=== PATIENT | female | born 1975 | race Caucasian/White ===

== ENCOUNTER → 2016-03-18 | Outpatient (REF) | payer OTHER ==
[2016-03-18 13:09] LABS: CALCIUM OXALATE CRYSTALS LARGE
== END | disposition home or self-care (01) ==
LOC: M LAB REF 12:27
PROVIDERS: ATTEND Physician Assistant
DX: N39.0 Urinary tract infection, site not specified (principal); R30.0 Dysuria

== ENCOUNTER → 2016-12-08 | Outpatient (REF) | payer OTHER | LOC: M SFHCPLAZ 10:48 | PROVIDERS: ATTEND Nurse Practitioner Family | DX: Z91.89 Other specified personal risk factors, not elsewhere classified (principal) ==

== ENCOUNTER → 2017-10-15 | Outpatient (CLI) | payer OTHER ==
[2017-10-15 10:49] LABS: BASO # 0.1 10^3/uL (0.0-0.2); BASO % 0.7 % (0.0-1.0); EOS # 0.1 10^3/uL (0.0-0.50); EOS % 0.7 % (0.0-3.0); HEMATOCRIT 35.1 % (36.0-47.0); HEMOGLOBIN 10.8 g/dl (12.0-15.5); IMMATURE GRANULOCYTE % 0.4 % (0-3.0); LYMPH # 2.1 10^3/uL (1.5-4.5); LYMPH % 24.6 % (24.0-44.0); MEAN CORPUSCULAR HEMOGLOBIN 24.7 pg (27.0-33.0); MEAN CORPUSCULAR HGB CONC 30.8 g/dl (32.0-36.5); MEAN CORPUSCULAR VOLUME 80.3 fl (80.0-96.0); MONO # 0.5 10^3/uL (0.0-0.8); MONO % 5.4 % (0.0-5.0); NEUTROPHILS # 5.8 10^3/uL (1.8-7.7); NEUTROPHILS % 68.2 % (36.0-66.0); PLATELET COUNT, AUTOMATED 341 10^3/uL (150-450); RED BLOOD COUNT 4.37 10^6/uL (4.00-5.40); RED CELL DISTRIBUTION WIDTH 24.1 % (11.5-14.5); WHITE BLOOD COUNT 8.5 10^3/uL (4.0-10.0)
[2017-10-15 11:17] LABS: IRON (FE) 38 UG/DL (50-170); PERCENT SATURATION 8.6 % (13.2-45.0); TOTAL IRON BINDING CAPACITY 442 UG/DL (250-450)
[2017-10-15 11:46] LABS: VITAMIN B12 LEVEL 259 PG/ML
[2017-10-15 11:47] LABS: FOLATE 7.9 NG/ML
[2017-10-16 14:57] LABS: TISSUE TRANSGLUTAMINASE IgA <2 U/mL (0-3)
== END ==
LOC: M LAB 10:07
DX: D50.9 Iron deficiency anemia, unspecified (principal)
CPT/HCPCS: 82746

== ENCOUNTER 2018-01-26 08:06 | Emergency (ER) | payer OTHER ==
[2018-01-26 09:17] LABS: BASO # 0.1 10^3/uL (0.0-0.2); BASO % 1.1 % (0.0-1.0); EOS % 0.5 % (0.0-3.0); HEMATOCRIT 32.4 % (36.0-47.0); HEMOGLOBIN 9.6 g/dl (12.0-15.5); IMMATURE GRANULOCYTE % 0.2 % (0-3.0); LYMPH # 1.8 10^3/uL (1.5-4.5); LYMPH % 22.1 % (24.0-44.0); MEAN CORPUSCULAR HGB CONC 29.6 g/dl (32.0-36.5); MEAN CORPUSCULAR VOLUME 77.5 fl (80.0-96.0); MONO # 0.5 10^3/uL (0.0-0.8); MONO % 6.3 % (0.0-5.0); NEUTROPHILS # 5.6 10^3/uL (1.8-7.7); NEUTROPHILS % 69.8 % (36.0-66.0); PLATELET COUNT, AUTOMATED 360 10^3/uL (150-450); RED BLOOD COUNT 4.18 10^6/uL (4.00-5.40); RED CELL DISTRIBUTION WIDTH 15.9 % (11.5-14.5); WHITE BLOOD COUNT 8.1 10^3/uL (4.0-10.0)
[2018-01-26 09:53] LABS: ALBUMIN 3.7 GM/DL (3.2-5.2); ALBUMIN/GLOBULIN RATIO 1.06 (1.00-1.93); ALKALINE PHOSPHATASE 77 U/L (45-117); ALT/SGPT 17 U/L (12-78); ANION GAP 5 MEQ/L (8-16); AST/SGOT 23 U/L (7-37); BILIRUBIN,DIRECT < 0.1 MG/DL (0.0-0.2); BILIRUBIN,TOTAL 0.5 MG/DL (0.2-1.0); BLOOD UREA NITROGEN 6 MG/DL (7-18); CALCIUM LEVEL 8.6 MG/DL (8.5-10.1); CARBON DIOXIDE LEVEL 28 MEQ/L (21-32); CHLORIDE LEVEL 107 MEQ/L (98-107); GLOMERULAR FILTRATION RATE > 60.0 (>58); GLUCOSE, FASTING 84 MG/DL (70-100); POTASSIUM SERUM 4.6 MEQ/L (3.5-5.1); SODIUM LEVEL 140 MEQ/L (136-145); TOTAL PROTEIN 7.2 GM/DL (6.4-8.2)
[2018-01-26 09:58] LABS: CONTROL LINE HCG INT CTR LINE PRESENT; HCG, SERUM QUALITATIVE NEGATIVE (NEGATIVE)
[2018-01-26] MEDS: NS 1,000 ML IV (10:25)
[2018-01-26 10:35] LABS: FERRITIN 4 NG/ML (8-252); FOLATE 10.6 NG/ML (>5.4); IRON (FE) 22 UG/DL (50-170); PERCENT SATURATION 4.3 % (13.2-45.0); TOTAL IRON BINDING CAPACITY 510 UG/DL (250-450); VITAMIN B12 LEVEL 376 PG/ML (247-911)
== END 2018-01-26 11:36 | disposition home or self-care (01) ==
LOC: M ED 08:06
DX: K64.4 Residual hemorrhoidal skin tags (principal); N93.8 Other specified abnormal uterine and vaginal bleeding; D50.9 Iron deficiency anemia, unspecified; K92.2 Gastrointestinal hemorrhage, unspecified; N83.201 Unspecified ovarian cyst, right side; N88.8 Other specified noninflammatory disorders of cervix uteri; Z90.5 Acquired absence of kidney; K27.9 Peptic ulcer, site unspecified, unspecified as acute or chronic, without hemorrhage or perforation; Z98.84 Bariatric surgery status; Z72.0 Tobacco use; Z79.899 Other long term (current) drug therapy; Z91.89 Other specified personal risk factors, not elsewhere classified
CPT/HCPCS: 76856

== ENCOUNTER 2018-03-28 13:05 | Observation (INO) | payer OTHER ==
[~2018-03-28] VITALS: Ht 165.1 cm; Wt 77.0 kg
[~2018-03-28 13:05] MED LIST: IRON27TA2 PO; LEXA1TAB PO; OMEP20TA PO; OMEP40CA2 PO; PROT1TAB2 PO; SUCR1SS PO; SUCR1TA PO
--- NOTE | 2018-03-28 13:52 | REP ---
Clinical: Trauma. Technique: AP, lateral, bilateral oblique views of the right tibia / fibula. Findings: Comminuted fractures involving the proximal tibial and fibular metaphyses. Evidence of intra-articular extension of the tibial fracture cannot be excluded. Impression: Comminuted fractures of the proximal tibial and fibular metaphyses. Electronically Signed by Kishan Delaney MD 03/28/2018 01:44 P
--- NOTE | 2018-03-28 13:53 | REP ---
Clinical: Trauma . Technique: AP, lateral, bilateral oblique views. Findings: No acute fracture or dislocation. Generalized age-related changes noted along with small calcaneal heal spur. Impression: No acute fracture or dislocation. Electronically Signed by Kishan Delaney MD 03/28/2018 01:45 P
--- NOTE | 2018-03-28 13:55 | REP ---
Clinical: Trauma. Technique: AP, lateral, bilateral oblique views of the right knee. Findings: Comminuted fractures of the proximal fibular and tibial metaphyses noted with intra-articular extension of the tibial fracture involving the intercondylar plateau. Impression: Proximal tibial and fibular metaphyseal fractures intra-articular extension of the tibial fracture. Electronically Signed by Kishan Delaney MD 03/28/2018 01:46 P
[2018-03-28] MEDS ORDERED: MORPHINE 4 MG/ML 1ML VIAL/SYRINGE (J2270) IV ONE ×2 (14:15→15:15)
--- NOTE | 2018-03-28 15:09 | REP ---
Clinical: Trauma. Technique: Axial noncontrast images from the femoral condyles through the knee and ankle with coronal and sagittal re-formations. Findings: There is a nondisplaced fracture involving the tibial metaphysis extending superiorly to the articular surface. There is a comminuted fracture involving the proximal fibular metaphysis. Moderate joint effusion and subtle post traumatic changes to the surrounding soft tissues noted without obvious significant intramuscular hematoma, foreign body or obvious laceration. Impression: Fractures of the proximal tibia and fibula. Electronically Signed by Kishan Delaney MD 03/28/2018 03:00 P
[2018-03-28] MEDS ORDERED: ONDANSETRON 4MG/2ML VIAL (J2405) IV ONE (15:15)
[2018-03-28] MEDS ORDERED: ENDO10TA8 PO (15:27)
[2018-03-28] MEDS ORDERED: MORPHINE 2 MG/ML 1ML SYRINGE (J2270) IV ONE (15:45)
[2018-03-28] MEDS: HYDROMORPHONE HCL 0.5 MG/ 0.5 ML SYRINGE (J1170 PER 1) IV PRN ×2 (17:19→20:06)
[2018-03-28 19:29] LABS: HEMATOCRIT 27.3 % (36.0-47.0); HEMOGLOBIN 7.9 g/dl (12.0-15.5); MEAN CORPUSCULAR HEMOGLOBIN 21.2 pg (27.0-33.0); MEAN CORPUSCULAR HGB CONC 28.9 g/dl (32.0-36.5); MEAN CORPUSCULAR VOLUME 73.2 fl (80.0-96.0); PLATELET COUNT, AUTOMATED 321 10^3/uL (150-450); RED BLOOD COUNT 3.73 10^6/uL (4.00-5.40); WHITE BLOOD COUNT 13.4 10^3/uL (4.0-10.0)
[2018-03-28 19:56] LABS: BLOOD UREA NITROGEN 7 MG/DL (7-18); CALCIUM LEVEL 7.9 MG/DL (8.5-10.1); CARBON DIOXIDE LEVEL 27 MEQ/L (21-32); CHLORIDE LEVEL 106 MEQ/L (98-107); CREATININE FOR GFR 0.66 MG/DL (0.55-1.30); GLOMERULAR FILTRATION RATE > 60.0 (>58); GLUCOSE, FASTING 167 MG/DL (70-100); SODIUM LEVEL 140 MEQ/L (136-145)
[2018-03-28 21:45] VITALS: BP 168/82
[2018-03-28] MEDS: MORPHINE 4 MG/ML 1ML VIAL/SYRINGE (J2270) IV PRN (22:30)
[2018-03-29] MEDS: MORPHINE 4 MG/ML 1ML VIAL/SYRINGE (J2270) IV PRN ×2 (02:08→04:38)
[2018-03-29 06:00] VITALS: BP 119/68
[2018-03-29] MEDS ORDERED: PERCOCET 5MG/325MG TAB PO PRN (07:15)
[2018-03-29] MEDS ORDERED: ONDANSETRON 4 MG TAB (S0181) PO PRN (07:15)
[2018-03-29] MEDS ORDERED: KETOROLAC 30 MG/ML VIAL (J1885) IV PRN (07:30)
[2018-03-29 08:10] VITALS: BP 135/76
[2018-03-29] MEDS: PERCOCET 5MG/325MG TAB PO PRN ×4 (08:14→21:45)
--- NOTE | 2018-03-29 08:59 | HPE ---
DATE OF ADMISSION: 03/28/2018 ADMISSION HISTORY AND PHYSICAL: 42-year-old female with past medical history of gastric bypass surgery in 2014 and gastroesophageal reflux disease (GERD) presents to the emergency room after having a fall at home. Apparently, she was tubing with her kids and she fell off and twisted her right foot. When she came to the emergency room (ER), she was found to have a right tibia/fibula fracture. Orthopedics did not think this was a surgical issue, wanted to give the patient a brace and send her home but she was in too much pain. She was given multiple doses of morphine and Dilaudid to no avail so patient will be admitted for pain management and ortho consultation. At this time, her pain is 3/10 and she offers no complaints of chest pain or shortness of breath. No abdominal pain, nausea, vomiting, vertigo or headache. Again, past medical history of gastric bypass surgery in 2014, history of GERD, iron deficiency anemia. She has NO KNOWN DRUG ALLERGIES. FAMILY HISTORY: Noncontributory. SOCIAL HISTORY: Patient smokes a pack day for many years. Denies alcohol or illicit drugs. MEDICATIONS (she takes at home are as follow): - omeprazole 40 mg orally twice daily - sucralfate 1 gram orally four times a day - Endocet one tablet orally four times a day as needed - iron 27 mg one tablet orally daily Review of systems is negative of all 10 major systems except what is mentioned in the history of present illness (HPI). Vital Signs: Blood pressure is 136/80. Heart rate is 82, regular. Respiratory rate is 14. Temperature is 99.8. Oxygen saturation 98% on room air. Head: Atraumatic, normocephalic atraumatic. Neck: Supple. No jugular venous distention (JVD). Lungs are clear to auscultation. S1, S2 audible. No murmurs appreciated. Abdomen: Soft. Positive bowel sounds. Left leg has no pedal edema. Right leg is in a brace. Neurologic Examination: Patient awake, alert and oriented times three. Labs at this point are pending. IMPRESSION: Right tibia/fibula fracture. PLAN: Patient is to be admitted to medical-surgical floor on observation status. We will have orthopedics see the patient in the morning, and I will give her morphine 2 mg IV every 2 as needed for pain management. We will continue her preadmission medications and continue her care in the medical-surgical floor.
[2018-03-29] MEDS: ENOXAPARIN 40 MG/0.4 ML SYRINGE (J1650) SC SCH (09:20)
--- NOTE | 2018-03-29 10:00 | CR ---
DATE OF CONSULTATION: 03/28/2018 CHIEF COMPLAINT: Right tibial plateau fracture. HISTORY OF PRESENT ILLNESS: This is a 42-year-old female who was doing some tubing/sledding in her driveway yesterday at 11:00 a.m. She had a twisting injury to her knee. She felt immediate pain in the knee. She subsequently presented to the emergency department. They called me and she was found to have a tibial plateau fracture. I advised them to put her in a knee brace in extension, non-weightbearing and to follow-up in my clinic the next day. Unfortunately, she could not cope with the pain so she was admitted to the hospital overnight. She was admitted to [address] [place] [address]. She did not have any previous history of injury or problems with the knee. PAST MEDICAL HISTORY: Significant for Anemia. She receives periodic blood transfusions. MEDICATIONS: - omeprazole - Carafate ALLERGIES: No known drug allergies. SURGICAL HISTORY: Gastric bypass in 2014. Cholecystectomy. Two sections. 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 She smokes 20 cigarettes a day. She drinks alcohol occasionally. She does not consume any street drugs. PHYSICAL EXAMINATION: Revealed a well appearing 42-year-old female. She is anxious and tearful. She is alert and oriented times three. Vital signs stable. Examination of her lower extremities revealed closed injury to the right side, nothing on the left side. Moderate amount of swelling to the knee, but nothing tracking down the leg. No obvious ecchymosis. No redness. Normal sensation in both lower extremities, superficial and deep peroneal nerves as well as saphenous, sural and tibial. She is able to wiggle her toes, dorsiflex and plantar flex her feet on both sides. She had good perfusion to both her feet. Her feet were warm. Dorsalis pedis and tibialis posterior pulses were strong on both sides. There was a little bit of pain to palpation of the lateral side of the knee, but nothing down the leg or into the hip. The hip she did state was a little bit sore from not moving her leg. She was in a knee extension immobilizer brace and did put an ice pack onto the knee. CT scan and radiographs were reviewed. This appears to show a nondisplaced type 1 lateral split fracture of the tibial plateau. No obvious fracture to the distal femur. There is a proximal fibula fracture. It is oblique and at the neck. No obvious intra-articular gaps, steps or comminution. ASSESSMENT/PLAN: This is a 42-year-old female with a type 1 Schatzker tibial plateau fracture. Given the articular surface congruity I believe that we can treat this nonoperatively. We will get her a hinged knee brace for now locked in extension as she is having some difficulties with pain, but no obvious compartment syndrome. The compartments were soft on today's exam. We will try to control her pain with oral medications such as Tylenol and opioid medications. We will try two doses of IV Toradol 30 mg every 6 hours to try and settle down her pain. I have advised her the best course of action to try and get up and mobilize. For now we will make her non-weightbearing on that side locked in extension in a hinged knee brace. As it seems like she has a low pain tolerance and I do not expect her to mobilize very rapidly, we will put her on Lovenox 40 mg by mouth once daily for venous thromboembolism (VTE)/deep vein thrombosis (DVT) prophylaxis. If she does end up being discharged home whenever she is comfortable she can see me back in the clinic in about one weeks time where I will start gradual knee range of motion.
--- NOTE | 2018-03-29 18:10 | IPN ---
DATE: 03/29/2018 CHIEF COMPLAINT: Right tibial plateau fracture plus patient concerns and questions. HISTORY OF PRESENT ILLNESS: This is a 42-year-old female who had a fall. She has sustained what appears to be on the CT scan a type 1 tibial plateau fracture. This is undisplaced. No steps or gaps of the joints. I saw her this morning at 6:45 a.m. and I explained all this to her. I explained that we can treat this nonoperatively given the articular congruity and lack of gapping or steps at the joint and lack of comminution as well as simple fracture pattern. I saw her with the nurse practitioner, Evangelina. I explained that we were ordering a hinged knee brace, that she will be non-weightbearing for the next 2 weeks, largely locked in extension, as well as placing her on a blood thinner and trying some intravenous Toradol as well as oral Tylenol and narcotics to control her pain. Later that evening, Evangelina communicated to me that the patient was having some concerns related to lack of explanation and thought that she was going to have an operation. This was communicated to her in the emergency department by either the physician or the physician assistant office manager and not by myself. She is also wondering about a cast for the leg and what exactly her fracture looks like. PHYSICAL EXAMINATION: She is seen today with her in the room. Inspection of the lower extremities reveal a moderate amount of swelling to the right knee, minimal ecchymosis. She is able to wiggle her toes, dorsiflex and plantar flex her foot. She has a strong dorsalis pedis pulse on that side. Compartments are soft. She is still in the knee immobilizer brace, she does not have a hinged knee brace yet. ASSESSMENT AND PLAN: Myself as well as the nurse came into the room and tried to explain what was going on again to the patient. She was more understanding. We explained to her the nature of the fracture. She was apparently described the fracture as being "shattered" at one point, but really it is more of a proximal fibula neck fracture and a Schatzker type 1 tibial plateau fracture. I morgan her a picture of this. I explained in great detail to her that we do need to follow this up at weekly intervals to make sure that there is no further displacement or shifting of the fracture site, in which case it may need surgery to prevent deformity and early knee arthritis. Her and her were more understanding of this. We explained to her what a knee immobilizer is doing exactly and the fact that she is in hospital for pain control and also to be able to mobilize safely non-weightbearing with the crutches. She seemed to accept this explanation and I waited until they had no further questions and then I told them that I would see her tomorrow morning and throughout her hospital course and follow her up with weekly x-rays. They appeared satisfied with this answer. Hopefully this addresses their questions and concerns adequately.
[2018-03-29 22:00] VITALS: BP 125/58
[2018-03-30] MEDS: PERCOCET 5MG/325MG TAB PO PRN ×6 (02:14→23:12)
[2018-03-30 06:00] VITALS: BP 128/65
--- NOTE | 2018-03-30 07:16 | IPN ---
DATE OF SERVICE: 03/30/2018 CHIEF COMPLAINT: Post admit day 2 right tibial plateau fracture. HISTORY OF PRESENT ILLNESS: This 42-year-old female is seen today post admission day 2 right tibial plateau fracture. She was admitted for pain control. Her pain is slowly diminishing now. Still located in the knee, nowhere else. I had spoken to her yesterday, explained her x-rays and the nonoperative management of this problem given the articular surface congruity, no comminution. She is still in the knee brace and extension. Overall she is doing better. PHYSICAL EXAMINATION: Vital signs: Respiratory rate this morning 16. She has no updated vital signs from this morning. I spoke to her this morning. She is alert and oriented times three. She recognizes that she was being a bit unreasonable yesterday with myself and with the man that fitted her for the hinged knee brace. She would like to have that. In terms of her right lower extremity, there is a moderate amount of swelling but no ecchymosis. She can wiggle her toes, dorsiflex and plantarflex her foot. No pain on passive stretch. She has normal pedal pulses. ASSESSMENT AND PLAN: This 42-year-old female, we will call back the individual that fits the braces to get her into a hinged knee brace. We will lock this in extension and keep her non-weightbearing for the first two weeks and then gradually progress her weight bearing to touch down weightbearing from weeks 3-8. We will start gradual range of motion at the 2 week alfredo while she is in bed. She remains on VTE prophylaxis. We will try to get her pain under control and I have advised her to try and wean off the opioid medications to help with her ambulation. I also showed her a picture of her CT scan this morning. She was more understanding of the nature of the injury. We will see how things go with her.
[2018-03-30] MEDS: ENOXAPARIN 40 MG/0.4 ML SYRINGE (J1650) SC SCH (10:21)
[2018-03-30 13:11] LABS: HEMATOCRIT 26.8 % (36.0-47.0); MEAN CORPUSCULAR HEMOGLOBIN 21.4 pg (27.0-33.0); MEAN CORPUSCULAR HGB CONC 29.9 g/dl (32.0-36.5); MEAN CORPUSCULAR VOLUME 71.8 fl (80.0-96.0); PLATELET COUNT, AUTOMATED 329 10^3/uL (150-450); RED BLOOD COUNT 3.73 10^6/uL (4.00-5.40)
[2018-03-30 14:00] VITALS: BP 116/66
--- NOTE | 2018-03-30 15:03 | IPN ---
DATE: 03/30/2018 SUBJECTIVE: The patient tells me that she is feeling better. She still has pain in her leg but otherwise no specific complaints. Denies any fevers, chills, chest pain, or shortness of breath. OBJECTIVE: VITAL SIGNS: Temperature 97.1, pulse 72, respiratory rate 16, blood pressure 128/65, oxygen saturation 97% on room air. GENERAL: She is a middle-aged, female accompanied by her significant other. She does not appear to be in any acute distress. NEUROLOGIC: Cranial nerves II-XII are grossly intact. HEENT: She has moist mucous membranes. No elevation of central venous pressure (CVP). CARDIOVASCULAR: S1, S2, regular. RESPIRATORY: Clear. ABDOMEN: Obese. EXTREMITIES: Her right lower extremity is in a brace. Decreased range of motion secondary to pain. LABORATORY STUDIES: WBC 10.0, hemoglobin 8.0, platelet count 329. Chemistry Panel: Sodium 140, potassium 4.0, chloride 106, bicarbonate 27, BUN 7, creatinine 0.6. No new imaging. ASSESSMENT AND PLAN: This is a 42-year-old female with a tibia/fibula fracture of the right lower extremity, status post trauma in a sledding accident. 1. Tibia/fibula fracture. She is nonoperative as per orthopedic surgery. Their help has been greatly appreciated. The plan is for her to have a specific brace placed for her today and then have her work with physical therapy and work on disposition planning from there. 2. Symptomatic anemia. She has struggled with this for many years and has been transfusion dependent in the past. It is felt as though she has a history of gastric bypass surgery and it may be related to her anastomotic leak versus what is more likely menorrhagia. She is mildly symptomatic and her counts her low while she is here. I will transfuse her two units and order iron studies. 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 3. Deep vein thrombosis (DVT) prophylaxis. Lovenox. DISPOSITION: Pending physical therapy (PT) and brace placement.
[2018-03-30 20:15] LABS: HEMATOCRIT 29.3 % (36.0-47.0); HEMOGLOBIN 8.9 g/dl (12.0-15.5)
[2018-03-30 22:00] VITALS: BP 120/60
[2018-03-31] MEDS: PERCOCET 5MG/325MG TAB PO PRN ×3 (03:56→12:38)
[2018-03-31] MEDS ORDERED: ASPI81CH30 PO (06:55)
[2018-03-31] MEDS ORDERED: PERC5TAB12 PO (06:55)
--- NOTE | 2018-03-31 07:31 | IPN ---
DATE OF SERVICE: 03/31/2018 CHIEF COMPLAINT: Post admit day 3 right tibial plateau fracture treating this non-operatively. HISTORY OF PRESENT ILLNESS: This 42-year-old female has a minimally displaced tibial plateau fracture. Seen today at [address] [place] [address]. She was admitted initially by the hospitalist for problems with pain management. Now she is on oral Percocet. She is not taking any more intravenous pain medications. She is comfortable. She has the hinged knee brace locked in extension. She is ambulating using a walker and she did relay one episode where she got upset with the occupational therapy (OT) service. Otherwise she is definitely slow to mobilize per the nurses. Still using a bed zamorano. She also has been managed by the hospitalist and was transfused apparently yesterday. She has chronically low hemoglobin. When she came in, it was 7.9. PHYSICAL EXAMINATION: Vital signs: Respiratory rate 16 this morning. No vital signs documented this morning but yesterday her temperature was 97.3. Blood pressure 120/60, pulse rate 78. She is alert and oriented times three. She is slightly better groomed today. Easier to converse with. She remembered that she is going to be in the brace for 6-8 weeks. In terms of her lower extremities, there is minimal to moderate amount of swelling around the knee. No ecchymosis. No fracture, blisters. She is able to wiggle her toes and dorsiflex and plantarflex her foot. She has normal sensation throughout the foot and good pedal pulses. The foot is warm and well perfused. LABORATORY EXAM: Revealed hemoglobin on arrival is 7.9 and yesterday it was 8.9. I presume post transfusion. ASSESSMENT AND PLAN: This 42-year-old female, we have encouraged to mobilize and be discharged to home on oral pain medication. Ideally she should go home on one 325 mg aspirin per day for VTA prophylaxis as she is quite slow to mobilize. I would like to see her in the clinic about 1 week post injury or early next week for repeat radiograph and clinical exam to ensure that there is no displacement of the fracture. In terms of her medical issues, these are being actively managed by the hospitalist and apparently due to her changing insurances, she might end up getting infusion, thus she has tried iron in the past. I will leave this to her family doctors and internists. I look forward to seeing her back in the clinic in about a weeks' time.
[2018-03-31] MEDS: ENOXAPARIN 40 MG/0.4 ML SYRINGE (J1650) SC SCH (08:32)
--- NOTE | 2018-03-31 21:43 | DSES ---
DATE OF ADMISSION: 03/28/2018 DATE OF DISCHARGE: 03/31/2018 DISCHARGE DIAGNOSIS: Comminuted fracture of the proximal tibia and fibula metaphysis. SECONDARY DIAGNOSIS: Symptomatic anemia. HOSPITAL COURSE: The patient is a 42-year-old female who was in a sledding accident and suffered a traumatic tibia-fibular fracture. She was admitted to the hospitalist service. She had a consultation by orthopedic surgery, Harley Kothari. She was felt to be nonoperative. She was provided with a special brace. It was recommended that she be discharged home on aspirin as per orthopedic surgery's recommendations, as she was quite slow to mobilize, with 1-week followup in their clinic. During the stay she was found to be somewhat anemic related to menorrhagia versus anastomotic leak related to her bariatric surgery. She has been evaluated numerous times with numerous providers in the outpatient setting regarding this. Iron studies were suggestive of iron deficiency anemia, and she was provided with 2 units of transfusion, which she had a positive response to. She cleared physical therapy while wearing her brace and was medically stable for discharge home at this time with her clinical syndrome improved. This morning, the patient does not have any complaints. OBJECTIVE: VITAL SIGNS: Temperature 97.3, pulse 78, respiratory rate 20, blood pressure (BP) 120/60, oxygen saturation 96% on room air. GENERAL: She is a pleasant, middle-aged female with numerous tattoos, sitting up in bed in no acute distress. HEENT: Cranial nerves II-XII are grossly intact. She has moist mucous membranes. CARDIOVASCULAR: S1, S2, regular. RESPIRATORY: Clear to auscultation bilaterally. EXTREMITIES: No clubbing, cyanosis, or edema. Right lower extremity brace. LABORATORY STUDIES: WBC 10.0, hemoglobin 8.9, platelet count 329. Chemistry panel: Sodium 140, potassium 4.0, chloride 106, bicarbonate 27, BUN 7, creatinine 0.6. ASSESSMENT AND PLAN: This is a 42-year-old female with a traumatic tibia-fibula fracture of the right lower extremity, status post trauma in a sledding accident. 1. Tibia-fibula fracture, nonoperative per orthopedic surgery. Their help has been greatly appreciated. Plan is to have her in a brace and be nonweightbearing. She is to followup in the orthopedic clinic in [address] Kothari. Will be given aspirin for deep vein thrombosis (DVT) prophylaxis. 2. Symptomatic anemia. [place] to be related to menorrhagia versus gastric bypass anastomotic leak. She did have a positive response to 1 unit of packed red blood cells (PRBC). I have recommended that she followup with her harness cleaner and bariatric surgeon in the outpatient setting for further evaluation and workup regarding this. She should likely also be on iron supplementation in the long run. She tells me that she is on this already. DISPOSITION: The patient will be discharged home. She is being discharged to the care of her family. Her clinical syndrome is resolved. She is to followup with Dr. Alvarez in 1 week, primary care physician (PCP) in 1 week. Walk with a walker. Nonweightbearing on the right. 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 Aspirin 81 mg daily for 30 days as per orthopedics, Percocet 5/325 one tablet every 4 hours as needed for pain as per orthopedic surgery, Endocet 10/325 four times daily as needed for pain as per orthopedic surgery, iron 27 mg daily, omeprazole 40 mg twice a day, Carafate 1 gram four times a day. Greater than 30 minutes spent organizing disposition.
== END 2018-03-31 14:05 | disposition home or self-care (01) ==
LOC: M ED 13:05 → M ED INP 19:06 → M MS5PR 21:40
PROVIDERS: ADMIT Internal Medicine; ATTEND Internal Medicine Nephrology
DX: S82.101A Unspecified fracture of upper end of right tibia, initial encounter for closed fracture (principal); Y93.23 Activity, snow (alpine) (downhill) skiing, snowboarding, sledding, tobogganing and snow tubing; Y92.093 Driveway of other non-institutional residence as the place of occurrence of the external cause; Y99.8 Other external cause status; D50.9 Iron deficiency anemia, unspecified; Z98.84 Bariatric surgery status; F17.210 Nicotine dependence, cigarettes, uncomplicated; K21.9 Gastro-esophageal reflux disease without esophagitis; Z79.899 Other long term (current) drug therapy
CPT/HCPCS: 36415; 73564; 73590; 73610; 73700; 80048; 82728; 83550; 85014; 85018; 85027; 85046; 86850; 86900; 86901; 86920; 96372; 96374; 96375; 96376; 97116; 97161; 97530; 99285; J1170; J1650; J2270; J2405; P9016

== ENCOUNTER 2019-04-27 11:16 | Inpatient (IN) | payer OTHER ==
[~2019-04-27] VITALS: Ht 165.1 cm; Wt 85.6 kg
[~2019-04-27 11:16] MED LIST changes: +ENDO10TA8 PO; +GOOD81CH2 PO; +OMEP-358 PO; -OMEP20TA PO; -OMEP40CA2 PO; +OMEP40CA97 PO; +PERC5TAB12 PO
[2019-04-27] MEDS ORDERED: ESTR0.03 TOP (11:41)
[2019-04-27 11:52] LABS: BASO # 0.1 10^3/uL (0.0-0.2); BASO % 1.1 % (0.0-1.0); EOS # 0.1 10^3/uL (0.0-0.5); HEMATOCRIT 30.9 % (36.0-47.0); HEMOGLOBIN 8.6 g/dl (12.0-15.5); LYMPH # 1.8 10^3/uL (1.5-5.0); LYMPH % 24.9 % (24.0-44.0); MEAN CORPUSCULAR HEMOGLOBIN 19.7 pg (27.0-33.0); MEAN CORPUSCULAR HGB CONC 27.8 g/dl (32.0-36.5); MEAN CORPUSCULAR VOLUME 70.9 fl (80.0-96.0); MONO # 0.4 10^3/uL (0.0-0.8); NEUTROPHILS # 4.8 10^3/uL (1.5-8.5); NEUTROPHILS % 66.7 % (36.0-66.0); PLATELET COUNT, AUTOMATED 404 10^3/uL (150-450); RED BLOOD COUNT 4.36 10^6/uL (4.00-5.40); WHITE BLOOD COUNT 7.1 10^3/uL (4.0-10.0)
--- NOTE | 2019-04-27 12:05 | REP ---
PORTABLE CHEST X-RAY: Single view. HISTORY: Chest pain. COMPARISON CHEST X-RAY: November 25, 2015. FINDINGS: Monitoring electrodes are seen overlying the chest. The lungs are well inflated and clear. Pleural angles are sharp. Heart size is normal. There are mild degenerative changes in the thoracic spine. Pulmonary vasculature is not increased. IMPRESSION: No active disease. Electronically Signed by Cristobal Allen MD 04/27/2019 02:31 P
[2019-04-27 12:18] LABS: BLOOD UREA NITROGEN 6 MG/DL (7-18); CARBON DIOXIDE LEVEL 31 MEQ/L (21-32); CHLORIDE LEVEL 106 MEQ/L (98-107); CK-MB VALUE MASS < 1.0 NG/ML (<3.6); CPK CREATINE PHOSPHOKINASE 73 U/L (26-192); CREATININE FOR GFR 0.61 MG/DL (0.55-1.30); GLOMERULAR FILTRATION RATE > 60.0 (>58); GLUCOSE, FASTING 78 MG/DL (70-100); MB/CK RELATIVE INDEX 1.37 (< OR =4); POTASSIUM SERUM 4.4 MEQ/L (3.5-5.1); SODIUM LEVEL 140 MEQ/L (136-145); TROPONIN I < 0.02 NG/ML (< 0.10)
[2019-04-27] MEDS ORDERED: PANTOPRAZOLE 40MG INJ (PROTONIX) (C9113) IV ONE (12:30)
[2019-04-27 12:33] LABS: FERRITIN 3 NG/ML (8-252); IRON (FE) 14 UG/DL (50-170); PERCENT SATURATION 2.6 % (13.2-45.0); TOTAL IRON BINDING CAPACITY 539 UG/DL (250-450)
[2019-04-27 12:40] LABS: VITAMIN B12 LEVEL 388 PG/ML (247-911)
[2019-04-27] MEDS ORDERED: NS 1,000 ML IV ONE (12:45)
[2019-04-27] MEDS: GASTROGRAFIN SOLUTION 30ML PO SCH ×2 (13:36→14:25)
[2019-04-27] MEDS ORDERED: ISOVUE-370 76% 100ML VIAL (Q9967) As Ordered ONE (14:44)
--- NOTE | 2019-04-27 15:30 | REP ---
CT pulmonary angiogram: With IV contrast. History: Chest pain, leg swelling. Comparison studies: No comparison CT study. Contrast dose: 100 mL of Isovue [address] technique: Helical scanning is acquired and overlapping 1.5 mm and contiguous 3 mm axial images are reformatted. In addition, maximum intensity projection and multiplanar re-formation images are generated in sagittal and coronal imaging projections. CT pulmonary angiographic findings: A there is good opacification of the pulmonary arterial tree. No filling defect or vessel cutoff is seen to suggest pulmonary embolism. The thoracic aorta enhances homogeneously. There is no evidence of aneurysm or dissection. The lung campos are clear. There is no evidence of infiltrate, mass, or significant pulmonary nodule. There is no evidence of pleural or pericardial effusion. There are clips in the gallbladder fossa in the upper abdomen. Upper abdominal structures are otherwise unremarkable. The patient is status post gastric bypass. Impression: Negative CT pulmonary angiogram. No CT evidence of pulmonary embolus. No active cardiopulmonary disease. Electronically Signed by Cristobal Allen MD 04/27/2019 05:10 P
--- NOTE | 2019-04-27 15:36 | REP ---
CT abdomen and pelvis with IV and oral contrast: History: Chest pain leg swelling. CT contrast dose: 100 mL of intravenous Isovue 370. Comparison CT study August 03, 2017. CT findings: Digital preliminary activities director scouting radiograph shows clips in the right upper abdomen. Bowel gas pattern is unremarkable. There is no evidence of free intraperitoneal air. The lung bases are clear. No pleural effusion or upper abdominal ascites is seen. The liver and the spleen are normal in size and homogeneous in texture. The patient is status post gastric bypass procedure. The gallbladder is surgically absent. There is a cortical cyst at the upper pole of the right kidney measuring 2.1 cm in greatest diameter. Kidneys are otherwise morphologically intact. No ureteral calculus is seen. Urinary bladder is unremarkable. The uterus is surgically absent. Normal appendix is seen in the right lower quadrant. Small bowel loops demonstrate a zone of transient non-lead point intussusception in the left mid abdomen. No mass lesion is seen. The involved loop is at the distal jejunostomy site. Similar findings are noted on the August 03, [address] study. There is no evidence of a small bowel obstruction. No abdominal wall defect is seen. Bone window settings show mild degenerative spondylosis changes in the lumbar spine. There is bilateral L4 pars defect with a grade 1 4-5 spondylolisthesis, 5 mm. No bony destructive lesion is appreciated. Impression: Patient is status post gastric bypass, cholecystectomy, hysterectomy. Transient non-lead point intussusception visible in the jejunum left mid abdomen. This is at the site of the distal jejunostomy and is similar morphologically to the appearance on August 03, 2017. No evidence of mass or adenopathy. Small right renal cyst. Electronically Signed by Cristobal Allen MD 04/27/2019 05:10 P
[2019-04-27 15:53] LABS: ALT/SGPT 26 U/L (12-78); BILIRUBIN,DIRECT 0.2 MG/DL (0.0-0.2); BILIRUBIN,TOTAL 0.6 MG/DL (0.2-1.0); LIPASE 140 U/L (73-393); TOTAL PROTEIN 7.7 GM/DL (6.4-8.2)
--- NOTE | 2019-04-27 18:15 | HPEPDOC ---
[facility] Medical History & Physical Date of Admission Apr 27, 2019 Date of Service: Apr 27, 2019 Attending Physician: ARMANDO DOVE MD History and Physical CHIEF COMPLAINT: Abdominal pain, chest discomfort HISTORY OF PRESENT ILLNESS: 43-year-old female with past medical history of gastric bypass, post anastomotic ulcer and iron deficiency anemia presents from home with abdominal pain with chest discomfort. Patient reports that since her surgery she has had chronic diarrhea, vomiting, abdominal pain, along with small-volume bright red blood per rectum. Patient has history of hemorrhoids, describes rectal bleed similar to what a hemorrhoidal bleed would be like. Patient is had EGDs and colostomies in the past which are shown post anastomotic ulcers, as late as 2018. Patient reports her symptoms have worsened over the past few weeks and presented to the hospital today because of the chest pain that she has never had before. Patient reports abdominal pain radiating up to her chest, no associated symptoms. She denies any short of breath, dizziness or headache. She reports pain to be sharp/burning in nature, constant, unrelated to food. 10 point review of system is negative except for above PAST MEDICAL HISTORY: 1. Iron deficiency anemia. 2. Post anastomotic ulcer PAST SURGICAL HISTORY: 1. Gastric bypass. 2. Cholecystectomy. 3. Hysterectomy. SOCIAL HISTORY: Previous smoker. Social alcohol use. Denies drug use FAMILY HISTORY: Father with heart disease ALLERGIES: Please see below. HOME MEDICATIONS: Please see below. PHYSICAL EXAMINATION: VITAL SIGNS: Please see below. GENERAL: No distress HEENT: Normocephalic, atraumatic, moist mucous membranes NECK: Supple CARDIOVASCULAR EXAMINATION: S1, S2, no murmurs RESPIRATORY EXAMINATION: Clear to auscultation, no wheezing ABDOMINAL EXAMINATION: Soft, nontender, nondistended, positive bowel sounds EXTREMITIES: Range of motion intact SKIN: No rash NEUROLOGICAL EXAMINATION: Alert and oriented 3, no focal deficits PSYCHIATRIC EXAMINATION: Calm and cooperative LABORATORY DATA: See below. IMAGING: CT abdomen and pelvis showing transient jejunal intussusception, which appears chronic and stable in nature MICROBIOLOGY: Please see below. ASSESSMENT: 43-year-old female with past medical history of gastric bypass, post anastomotic ulcer and iron deficiency anemia being admitted for abdominal pain and anemia. PLAN: 1. Anemia. Iron studies with significant iron deficiency, also has chronic blood loss from hemorrhoidal bleed, has been evaluated by turbine room attendant in the past who was going to start iron infusions in the outpatient setting, start Venofer 100 mg IV daily. Stool OB pending, based on history and physical exam overt GI bleed is less likely, will monitor and consult GI if needed. 2. Gastric bypass. History of post anastomotic ulcer, continue omeprazole 40 mg twice a day. DVT prophylaxis: TEDs. GI prophylaxis: PPI Vital Signs Vital Signs Date Time Temp Pulse Resp B/P (MAP) Pulse Ox O2 Delivery O2 Flow Rate FiO2 04/27/19 15:07 118/63 (81) 04/27/19 15:00 71 100 04/27/19 12:00 17 04/27/19 11:16 98.3 Room Air Laboratory Data Labs 24H Laboratory Tests 2 04/27/19 11:38: Immature Granulocyte % (Auto) 0.3, Neutrophils (%) (Auto) 66.7H, Lymphocytes (%) (Auto) 24.9, Monocytes (%) (Auto) 6.0H, Eosinophils (%) (Auto) 1.0, Basophils (%) (Auto) 1.1H, Neutrophils # (Auto) 4.8, Lymphocytes # (Auto) 1.8, Monocytes # (Auto) 0.4, Eosinophils # (Auto) 0.1, Basophils # (Auto) 0.1, Nucleated Red Blood Cells % (auto) 0.0, Anion Gap 3L, Glomerular Filtration Rate > 60.0, Calcium Level 9.0, Iron Level 14L, Total Iron Binding Capacity 539H, Transferrin % Saturation 2.6L, Ferritin 3L, Total Bilirubin 0.6, Direct Bilirubin 0.2, Aspartate Amino Transf (AST/SGOT) 21, Alanine Aminotransferase (ALT/SGPT) 26, Alkaline Phosphatase 92, Total Creatine Kinase 73, Creatine Kinase MB < 1.0, Creatine Kinase MB Relative Index 1.37, Troponin I < 0.02, Total Protein 7.7, Albumin 4.0, Albumin/Globulin Ratio 1.08, Lipase 140, Vitamin B12 Level 388 CBC/BMP Laboratory Tests 04/27/19 11:38 Home Medications Scheduled Estradiol (Estradiol) 37.5 Mcg/24 Hr Patch.tdwk, 37.5 MCG TOP QWEEK MONDAYS - FELL OFF ON 04/26/19 AND DID NOT PUT ONE BACK ON Omeprazole (Omeprazole) 20 Mg Tab, 40 MG PO BID Allergies Coded Allergies: TAPE (Verified Allergy, Unknown, 08/03/17) A-FIB/CHADSVASC A-FIB History Current/History of A-Fib/PAF?: No ARMANDO DOVE MD Apr 27, 2019 18:15
[2019-04-27 21:00] VITALS: BP 110/62
[2019-04-27] MEDS: OMEPRAZOLE 20 MG CAP PO SCH (22:41)
[2019-04-27] MEDS: IRON SUCROSE 100 MG in NS 100 ML OVER 1 HR IV SCH (23:08)
[2019-04-27 23:35] VITALS: BP 101/70
[2019-04-27 23:50] VITALS: BP 108/72
[2019-04-28 05:00] VITALS: BP 106/70
[2019-04-28 06:15] LABS: HEMATOCRIT 27.1 % (36.0-47.0); HEMOGLOBIN 7.7 g/dl (12.0-15.5); MEAN CORPUSCULAR HEMOGLOBIN 19.9 pg (27.0-33.0); MEAN CORPUSCULAR HGB CONC 28.4 g/dl (32.0-36.5); MEAN CORPUSCULAR VOLUME 70.2 fl (80.0-96.0); PLATELET COUNT, AUTOMATED 333 10^3/uL (150-450); RED BLOOD COUNT 3.86 10^6/uL (4.00-5.40); WHITE BLOOD COUNT 5.3 10^3/uL (4.0-10.0)
[2019-04-28 06:47] LABS: ALBUMIN 3.2 GM/DL (3.2-5.2); ALT/SGPT 26 U/L (12-78); BILIRUBIN,TOTAL 0.7 MG/DL (0.2-1.0); BLOOD UREA NITROGEN 5 MG/DL (7-18); CALCIUM LEVEL 8.6 MG/DL (8.5-10.1); CARBON DIOXIDE LEVEL 31 MEQ/L (21-32); CHLORIDE LEVEL 109 MEQ/L (98-107); CREATININE FOR GFR 0.61 MG/DL (0.55-1.30); GLOMERULAR FILTRATION RATE > 60.0 (>58); GLUCOSE, FASTING 72 MG/DL (70-100); MAGNESIUM LEVEL 2.2 MG/DL (1.8-2.4); POTASSIUM SERUM 4.2 MEQ/L (3.5-5.1); SODIUM LEVEL 144 MEQ/L (136-145); TOTAL PROTEIN 6.7 GM/DL (6.4-8.2)
--- NOTE | 2019-04-28 06:52 | ECGEPIP ---
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
[2019-04-28] MEDS: OMEPRAZOLE 20 MG CAP PO SCH ×2 (09:31→22:54)
[2019-04-28] MEDS: ONDANSETRON 4MG/2ML VIAL (J2405) IV PRN (10:55)
[2019-04-28] MEDS: ACETAMINOPHEN TAB 650MG DOSE (2X325MG) PO PRN (10:55)
[2019-04-28 14:00] VITALS: BP 110/69
[2019-04-28] MEDS ORDERED: IRON SUCROSE 100MG 5ML VIAL (J1756 PER 1MG) IV SCH (19:00)
--- NOTE | 2019-04-28 21:40 | IPNPDOC ---
Date Seen The patient was seen on 04/28/19. Progress Note SUBJECTIVE: 43-year-old female with past medical history of gastric bypass, post anastomotic ulcer and iron deficiency anemia presents from home with abdominal pain with chest discomfort. Patient reports that since her surgery she has had chronic diarrhea, vomiting, abdominal pain, along with small-volume bright red blood per rectum. Patient has history of hemorrhoids, describes rectal bleed si milar to what a hemorrhoidal bleed would be like. Patient is had EGDs and colostomies in the past which are shown post anastomotic ulcers, as late as 2018. Patient reports her symptoms have worsened over the past few weeks and presented to the hospital today because of the chest pain that she has never had before. Patient reports abdominal pain radiating up to her chest, no associated symptoms. She denies any short of breath, dizziness or headache. She reports pain to be sharp/burning in nature, constant, unrelated to food. 04/28/19 No acute events overnight, remains fatigued, no other complaints, tolerating diet. 10 point review of system is negative except for above PHYSICAL EXAMINATION: VITAL SIGNS: Please see below. GENERAL: No distress HEENT: Normocephalic, atraumatic, moist mucous membranes NECK: Supple CARDIOVASCULAR EXAMINATION: S1, S2, no murmurs RESPIRATORY EXAMINATION: Clear to auscultation, no wheezing ABDOMINAL EXAMINATION: Soft, nontender, nondistended, positive bowel sounds EXTREMITIES: Range of motion intact SKIN: No rash NEUROLOGICAL EXAMINATION: Alert and oriented 3, no focal deficits PSYCHIATRIC EXAMINATION: Calm and cooperative LABORATORY DATA: See below. MICROBIOLOGY: Please see below. ASSESSMENT: 43-year-old female with past medical history of gastric bypass, post anastomotic ulcer and iron deficiency anemia being admitted for abdominal pain and anemia. PLAN: 1. Anemia. Iron studies with significant iron deficiency, also has chronic blood loss from hemorrhoidal bleed, has been evaluated by feed and farm management adviser in the past who was going to start iron infusions in the outpatient setting, continue Venofer 100 mg IV daily. Stool OB pending, no signs of bleeding. 2. Gastric bypass. History of post anastomotic ulcer, continue omeprazole 40 mg twice a day. DVT prophylaxis: TEDs. GI prophylaxis: PPI VS, I&O, 24H, Fishbone Vital Signs/I&O Vital Signs Date Time Temp Pulse Resp B/P (MAP) Pulse Ox O2 Delivery O2 Flow Rate FiO2 04/28/19 14:00 98.5 70 17 110/69 (83) 100 Room Air I&O- Last 24 Hours up to 6 AM 04/28/19 05:59 Intake Total 1565 ml Output Total 0 ml Balance 1565 ml Laboratory Data 24H LABS Laboratory Tests 2 04/28/19 05:53: Nucleated Red Blood Cells % (auto) 0.0, Anion Gap 4L, Glomerular Filtration Rate > 60.0, Calcium Level 8.6, Magnesium Level 2.2, Total Bilirubin 0.7, Aspartate Amino Transf (AST/SGOT) 17, Alanine Aminotransferase (ALT/SGPT) 26, Alkaline Phosphatase 78, Total Protein 6.7, Albumin 3.2, Albumin/Globulin Ratio 0.91L CBC/BMP Laboratory Tests 04/28/19 05:53 ARMANDO DOVE MD Apr 28, 2019 21:40
[2019-04-28 22:00] VITALS: BP 112/69
[2019-04-28] MEDS: IRON SUCROSE 100 MG in NS 100 ML OVER 1 HR IV SCH (22:55)
[2019-04-29 06:00] VITALS: BP 116/71
[2019-04-29 06:26] LABS: HEMATOCRIT 26.4 % (36.0-47.0); HEMOGLOBIN 7.5 g/dl (12.0-15.5); MEAN CORPUSCULAR HEMOGLOBIN 20.2 pg (27.0-33.0); MEAN CORPUSCULAR HGB CONC 28.4 g/dl (32.0-36.5); PLATELET COUNT, AUTOMATED 338 10^3/uL (150-450); RED BLOOD COUNT 3.72 10^6/uL (4.00-5.40); WHITE BLOOD COUNT 4.4 10^3/uL (4.0-10.0)
[2019-04-29 06:37] LABS: BLOOD UREA NITROGEN 7 MG/DL (7-18); CALCIUM LEVEL 8.4 MG/DL (8.5-10.1); CARBON DIOXIDE LEVEL 32 MEQ/L (21-32); CHLORIDE LEVEL 109 MEQ/L (98-107); CREATININE FOR GFR 0.62 MG/DL (0.55-1.30); GLOMERULAR FILTRATION RATE > 60.0 (>58); GLUCOSE, FASTING 73 MG/DL (70-100); POTASSIUM SERUM 4.1 MEQ/L (3.5-5.1); SODIUM LEVEL 144 MEQ/L (136-145)
[2019-04-29] MEDS: ONDANSETRON 4MG/2ML VIAL (J2405) IV PRN (09:48)
[2019-04-29] MEDS: OMEPRAZOLE 20 MG CAP PO SCH (09:48)
[2019-04-29] MEDS: ACETAMINOPHEN TAB 650MG DOSE (2X325MG) PO PRN (09:49)
[2019-04-29] MEDS ORDERED: IRON SUCROSE 100 MG in NS 100 ML IV SCH (11:00)
[2019-04-29 11:34] VITALS: BP 98/63
[2019-04-29] MEDS ORDERED: FERR325T3 PO (11:37)
[2019-04-29 12:39] VITALS: BP 110/68
[2019-04-29 13:30] VITALS: BP 111/67
--- NOTE | 2019-04-29 18:06 | DS.PDOC ---
Discharge Summary General Date of Admission Apr 27, 2019 at 18:00 Date of Discharge 04/29/19 Attending Physician: ARMANDO DOVE MD Discharge Summary PROCEDURES PERFORMED DURING STAY: None. ADMITTING DIAGNOSES: 1. Lethargy, nausea, iron deficiency anemia. DISCHARGE DIAGNOSES: 1. Lethargy, nausea, iron deficiency anemia. COMPLICATIONS/CHIEF COMPLAINT: Abd Pain,H/O Gastric Bypass,Iron Deficiency Anemia. HISTORY OF PRESENT ILLNESS: 43-year-old female with past medical history of gastric bypass and iron deficiency anemia was admitted for lethargy, nausea and anemia. Patient with severely low iron stores, treated with iron infusion with improvement in symptoms. Patient is already been evaluated by hematology in the outpatient setting and was supposed to start iron infusions in the near future. Patient is now at baseline, medically stable for discharge home and outpatient follow-up for further iron infusions.. HOSPITAL COURSE: As above. DISCHARGE MEDICATIONS: Please see below. ALLERGIES: Please see below. PHYSICAL EXAMINATION: VITAL SIGNS: Please see below. GENERAL: No distress HEENT: Normocephalic, atraumatic, moist mucous membranes NECK: Supple CARDIOVASCULAR EXAMINATION: S1, S2, no murmurs RESPIRATORY EXAMINATION: Clear to auscultation, no wheezing ABDOMINAL EXAMINATION: Soft, nontender, nondistended, positive bowel sounds EXTREMITIES: Range of motion intact SKIN: No rash NEUROLOGICAL EXAMINATION: Alert and oriented 3, no focal deficits PSYCHIATRIC EXAMINATION: Calm and cooperative LABORATORY DATA: Please see below. PROGNOSIS: Fair ACTIVITY: As tolerated. DIET: Regular DISCHARGE PLAN: Follow with hematology oncology PCP within 1-2 weeks DISPOSITION: 01 Home, Self-Care. DISCHARGE INSTRUCTIONS: 1. As above. DISCHARGE CONDITION: Stable. TIME SPENT ON DISCHARGE: Greater than 28 minutes. Vital Signs/I&Os Vital Signs Date Time Temp Pulse Resp B/P (MAP) Pulse Ox O2 Delivery O2 Flow Rate FiO2 04/29/19 13:30 98.2 74 16 111/67 (82) 100 Room Air I&O- Last 24 Hours up to 6 AM 04/29/19 06:00 Intake Total 2165 ml Balance 2165 ml Laboratory Data Labs 24H Laboratory Tests 2 04/29/19 05:32: Nucleated Red Blood Cells % (auto) 0.0, Anion Gap 3L, Glomerular Filtration Rate > 60.0, Calcium Level 8.4L CBC/BMP Laboratory Tests 3/6/20 05:32 Microbiology Microbiology 04/29/19 Stool Occult Blood (ALEX) - Final, Complete Discharge Medications Scheduled Estradiol (Estradiol) 37.5 Mcg/24 Hr Patch.tdwk, 37.5 MCG TOP QWEEK, (Reported) MONDAYS - FELL OFF ON 04/26/19 AND DID NOT PUT ONE BACK ON Ferrous Sulfate (Ferrous Sulfate) 325 Mg Tablet.dr, 1 TAB PO BID Omeprazole (Omeprazole) 20 Mg Tab, 40 MG PO BID, (Reported) Allergies Coded Allergies: TAPE (Verified Allergy, Unknown, 08/03/17) ARMANDO DOVE MD Apr 29, 2019 18:06
== END 2019-04-29 13:46 | disposition home or self-care (01) | DRG 812 ==
LOC: M ED 11:16 → M ED INP 18:00 → ENRESERVTM 20:35 → ENRESERVDT 20:35 → M MSPAV 22:15
PROVIDERS: ADMIT Internal Medicine; ATTEND Internal Medicine
DX: D50.9 Iron deficiency anemia, unspecified (principal); K64.8 Other hemorrhoids; R11.0 Nausea; Z90.49 Acquired absence of other specified parts of digestive tract; Z87.891 Personal history of nicotine dependence; Z79.899 Other long term (current) drug therapy; Z98.84 Bariatric surgery status; Z91.048 Other nonmedicinal substance allergy status

== ENCOUNTER → 2020-01-31 | Outpatient (CLI) | payer SELFPAY ==
[~2020-01-31] MED LIST changes: +ESTR0.03 TOP; +FERR325T3 PO
== END ==
LOC: M LABSMTC 11:54
PROVIDERS: ATTEND Pediatrics
DX: Z11.59 Encounter for screening for other viral diseases (principal)